=== PATIENT | female | born 1950 | race Caucasian/White ===

== ENCOUNTER 2021-12-18 10:02 | Outpatient (CLI) | payer MEDICARE, MEDICAID | END 2021-12-18 10:03 | disposition home or self-care (01) | LOC: CSHCP 10:02 | PROVIDERS: ATTEND Internal Medicine Critical Care Medicine | DX: J84.10 Pulmonary fibrosis, unspecified (principal); R06.00 Dyspnea, unspecified; J98.4 Other disorders of lung | CPT/HCPCS: 71046; 94060; 94726; 94729; 94760 ==

== ENCOUNTER 2022-10-13 11:56 | Emergency (ER) | payer MEDICARE, MEDICAID ==
[2022-10-13 12:52] LABS: #Monocytes 0.5 10x3/uL (0.0-1.1); #Neutrophils 4.8 10x3/uL (1.5-8.4); %Basophils 0.2 % (0.0-2.0); %Eosinophils 0.2 % (0.0-6.0); %Lymphocytes 13.1 % (18.0-47.0); %Neutrophils 78.2 % (40.0-75.0); Hematocrit 43.5 % (34.9-44.5); Hemoglobin 13.5 g/dL (12.0-15.5); Mean Corpuscular Hemoglobin 23.6 pg (27.0-33.0); Mean Platelet Volume 10.8 fl (7.4-10.4); Platelet Count 177 10x3/uL (150-450); Red Blood Cell (RBC) Count 5.72 10x6/uL (3.90-5.03); White Blood Cell (WBC) Count 6.2 10x3/uL (3.5-10.5)
[2022-10-13 13:02] LABS: ALT (SGPT) 18 U/L (8-55); AST (SGOT) 43 U/L (5-34); Albumin 3.2 g/dL (3.4-4.8); Alkaline Phosphatase 72 U/L (40-110); Anion Gap 23 mmol/L (10-20); BUN (Urea Nitrogen) 9 mg/dL (9.8-20.1); Bilirubin, Total 0.7 mg/dL (0.2-1.2); Calc. Creatinine Clearance 0 mL/min (70-130); Calcium 8.2 mg/dL (7.8-10.44); Carbon Dioxide 27 mmol/L (23-31); Chloride 86 mmol/L (98-107); Estimated GFR 94; Globulin 3.7 g/dL (2.4-3.5); Glucose 81 mg/dL (83-110); Lipase 11 U/L (8-78); Magnesium 1.6 mg/dL (1.6-2.6); Potassium 3.3 mmol/L (3.5-5.1); Protein, Total 6.9 g/dL (5.8-8.1); Sodium 133 mmol/L (136-145)
[2022-10-13 13:06] LABS: Troponin I 1.274 ng/mL (< 0.028)
[2022-10-13 13:19] LABS: INR-International Normal Ratio 1.1; PTT 26.9 sec (22.0-33.0); Prothrombin Time 11.5 sec (9.5-12.1)
[2022-10-13] MEDS ORDERED: Aspirin Chewable 81 MG TAB ONE (13:28)
[2022-10-13 13:42] LABS: Bilirubin Neg (Negative); Blood, Urine 10 (Negative); Clarity Cloudy (Clear); Glucose, Urine (Dipstick) Normal (Negative); Ketone, Urine 50 mg/dL (Negative); Leukocyte Negative (Negative); Nitrite Negative (Negative); Protein, Urine (Dipstick) 15 mg/dl (Neg-Trace)
[2022-10-13 14:42] LABS: SARS-CoV-2 NAA Rapid Test DETECTED (NotDetected)
[2022-10-13 14:54] LABS: Bacteria/HPF 4+ HPF (None Seen); CAUTI Indications for Culture Alt mental st,lethar; RBC/HPF 0-3 HPF (0-3); Squamous Epithelial 0-3 HPF (0-3)
[2022-10-13 14:56] LABS: Urine Culture Reflex Yes Yes
[2022-10-13] MEDS ORDERED: cefTRIAXone (ROCEPHIN) 1 GM VIAL ONE (16:14)
== END 2022-10-13 22:26 | disposition short-term general hospital (02) ==
LOC: CSHERS 11:56
DX: U07.1 COVID-19 (principal); R79.89 Other specified abnormal findings of blood chemistry; R41.82 Altered mental status, unspecified; I25.10 Atherosclerotic heart disease of native coronary artery without angina pectoris; I25.2 Old myocardial infarction; I10 Essential (primary) hypertension; F17.210 Nicotine dependence, cigarettes, uncomplicated
CPT/HCPCS: 0240U; 70450; 71045; 72125; 80053; 81001; 83690; 83735; 83880; 84484 ×2; 85025; 85610; 85730; 87040; 87086; 93005; 94760; 96365; 99285; 36415; J0696

== ENCOUNTER 2022-12-23 12:04 | Outpatient (CLI) | payer MEDICARE, MEDICAID | END 2022-12-23 12:05 | disposition home or self-care (01) | LOC: CSHCP 12:04 | PROVIDERS: ATTEND Internal Medicine Critical Care Medicine | DX: J84.10 Pulmonary fibrosis, unspecified (principal); J98.4 Other disorders of lung | CPT/HCPCS: 94010; 94664; 94726; 94729; 94760 ==

== ENCOUNTER 2023-04-15 09:53 | Outpatient (CLI) | payer MEDICARE, MEDICAID | END 2023-04-15 09:54 | disposition home or self-care (01) | LOC: CSHMRI 09:53 | PROVIDERS: ATTEND Nurse Practitioner Family | DX: S22.000A Wedge compression fracture of unspecified thoracic vertebra, initial encounter for closed fracture (principal); S22.050A Wedge compression fracture of T5-T6 vertebra, initial encounter for closed fracture; Z98.890 Other specified postprocedural states; S22.000D Wedge compression fracture of unspecified thoracic vertebra, subsequent encounter for fracture with routine healing | CPT/HCPCS: 72146 ==